=== PATIENT | female | born 1990 | race American Indian/Alaskan Native ===

== ENCOUNTER 2018-09-14 08:45 | Emergency (ER) | payer MEDICAID ==
[2018-09-14 08:56] VITALS: BP 137/81
--- NOTE | 2018-09-14 09:36 | Emergency Department Report ---
ED ENT HPI - General Chief complaint: Earache Stated complaint: EARACHE/BODY ACHE/SORE THROAT Time Seen by Provider: 09/14/18 09:16 Source: patient Mode of arrival: Ambulatory Limitations: No Limitations - History of Present Illness Initial comments: 28-year-old female presents complaining of pain with swallowing. Patient initially states she thinks it was and was with her again that no left ear is not to use along with her throat. She says she is having pain with swallowing. She denies fever chills nausea vomiting MD complaint: sore throat, ear pain -: Gradual Location: R ear Severity: moderate Severity scale (0 -10): 6 Quality: aching Consistency: intermittent Improves with: none Worsens with: swallowing Associated Symptoms: pain with swallowing, sore throat - Related Data Previous Rx's Medication Instructions Recorded Last Taken Type Amoxicillin [Amoxicillin TAB] 875 mg PO BID #14 tablet 09/14/18 Unknown Rx Ibuprofen [Motrin] 800 mg PO Q8HR #30 tablet 09/14/18 Unknown Rx Allergies Allergy/AdvReac Type Severity Reaction Status Date / Time No Known Allergies Allergy Unverified 09/14/18 08:51 ED Dental HPI - General Chief complaint: Earache Stated complaint: EARACHE/BODY ACHE/SORE THROAT Time Seen by Provider: 09/14/18 09:16 Source: patient Mode of arrival: Ambulatory Limitations: No Limitations - Related Data Previous Rx's Medication Instructions Recorded Last Taken Type Amoxicillin [Amoxicillin TAB] 875 mg PO BID #14 tablet 09/14/18 Unknown Rx Ibuprofen [Motrin] 800 mg PO Q8HR #30 tablet 09/14/18 Unknown Rx Allergies Allergy/AdvReac Type Severity Reaction Status Date / Time No Known Allergies Allergy Unverified 09/14/18 08:51 ED Review of Systems ROS: Stated complaint: EARACHE/BODY ACHE/SORE THROAT Other details as noted in HPI Comment: All other systems reviewed and negative ED Past Medical Hx - Past Medical History Previous Medical History?: No - Surgical History Past Surgical History?: No - Social History Smoking Status: Never Smoker Substance Use Type: None - Medications Home Medications: Home Medications Medication Instructions Recorded Confirmed Last Taken Type Amoxicillin [Amoxicillin TAB] 875 mg PO BID #14 tablet 09/14/18 Unknown Rx Ibuprofen [Motrin] 800 mg PO Q8HR #30 tablet 09/14/18 Unknown Rx ED Physical Exam - General Limitations: No Limitations General appearance: alert, in no apparent distress - Head Head exam: Present: atraumatic, normocephalic - Eye Eye exam: Present: normal appearance, EOMI Pupils: Present: normal accommodation - ENT ENT exam: Present: normal exam, mucous membranes dry, mucous membranes moist, TM's normal bilaterally, normal external ear exam, other (tonsillar exudate) - Neck Neck exam: Present: normal inspection, tenderness, full ROM, lymphadenopathy (right) - Respiratory Respiratory exam: Present: normal lung sounds bilaterally. Absent: respiratory distress, wheezes, rales - Cardiovascular Cardiovascular Exam: Present: regular rate, normal rhythm. Absent: systolic murmur, diastolic murmur, rubs, gallop - GI/Abdominal GI/Abdominal exam: Present: soft, normal bowel sounds - Extremities Exam Extremities exam: Present: normal inspection - Back Exam Back exam: Present: normal inspection - Neurological Exam Neurological exam: Present: alert, oriented X3 - Psychiatric Psychiatric exam: Present: normal affect, normal mood - Skin Skin exam: Present: warm, dry, intact, normal color. Absent: rash ED Course Vital Signs 09/14/18 08:54 Temperature 98.9 F Pulse Rate 105 H Respiratory 16 Rate Blood Pressure 137/81 [Left] O2 Sat by Pulse 97 Oximetry ED Medical Decision Making - Medical Decision Making 28-year-old female presents with pharyngitis/tonsillitis. ED course: Rapid strep tests ordered rapid strep test negative. The patient asymptomatic so she for clinical bacterial tonsillitis Patient received 1 dose of Tylenol,, 60 mg of prednisone. There was no Fever during ED stay Vital signs stable patient is in no acute or respiratory distress. Discussed findings with patient about the positive strep. Discussed treatment in ED with patient Discussed the patient that strep throat is contagious and to limit sharing spoons and such. Discussed with patient follow-up with primary care physician. Patient verbally states he understands and will comply to follow-up. Critical care attestation.: If time is entered above; I have spent that time in minutes in the direct care of this critically ill patient, excluding procedure time. ED Disposition Clinical Impression: Pharyngitis Disposition: DC-01 TO HOME OR SELFCARE Is pt being admited?: No Does the pt Need Aspirin: No Condition: Stable Instructions: Tonsillitis (ED), Pharyngitis (ED) Additional Instructions: Make sure to follow up with the primary care physician as discussed. Take all your medications as you've been prescribed. If you have any worsening symptoms or develop new symptoms please return to ED immediately. Prescriptions: Amoxicillin [Amoxicillin TAB] 875 mg PO BID #14 tablet Ibuprofen [Motrin] 800 mg PO Q8HR #30 tablet Referrals: FRANCIS VILLANUEVA MD [Primary Care Provider] - 3-5 Days Forms: Work/School Release Form(ED) Time of Disposition: 09:53
[2018-09-14] MEDS ORDERED: TYLENOL/CODEINE PO ONE (09:51)
[2018-09-14] MEDS ORDERED: DELTASONE PO ONE (09:51)
== END 2018-09-14 10:08 | disposition home or self-care (01) ==
LOC: ED 08:45
DX: J02.9 Acute pharyngitis, unspecified (principal)
CPT/HCPCS: 87116; 87430; 99283; J7512